=== PATIENT | female | born 1965 | race Caucasian/White ===

== ENCOUNTER 2016-11-27 14:10 | Emergency (ER) | payer OTHER ==
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
[~2016-11-27 14:10] MED LIST: ALBUTEROL17 GM INH; FLEXERIL10 MG PO; IBUPROFEN800 MG PO; NO MEDICATIONS; PHENTERMINE PO; TAMIFLU75 M1 PO; [UNRECOGNIZED DRUG - OTHER]
== END 2016-11-27 14:46 | disposition home or self-care (01) ==
LOC: SED 14:10
DX: S66.912A Strain of unspecified muscle, fascia and tendon at wrist and hand level, left hand, initial encounter (principal); S13.4XXA Sprain of ligaments of cervical spine, initial encounter; S33.5XXA Sprain of ligaments of lumbar spine, initial encounter; S60.811A Abrasion of right wrist, initial encounter; T14.8 Other injury of unspecified body region; V89.2XXA Person injured in unspecified motor-vehicle accident, traffic, initial encounter; Y92.410 Unspecified street and highway as the place of occurrence of the external cause
CPT/HCPCS: 71020; 72100; 72125; 73110; 99284

== ENCOUNTER 2016-11-29 12:48 | Emergency (ER) | payer OTHER ==
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
== END 2016-11-29 14:17 | disposition home or self-care (01) ==
LOC: SED 12:48
DX: S09.90XA Unspecified injury of head, initial encounter (principal); V47.5XXA Car driver injured in collision with fixed or stationary object in traffic accident, initial encounter; Y93.89 Activity, other specified; Y92.410 Unspecified street and highway as the place of occurrence of the external cause
CPT/HCPCS: 70450; 99284

== ENCOUNTER → 2017-01-19 | Outpatient (CLI) | payer BC ==
--- NOTE | ~2017-01-19 | US6 ---
[facility] A Service of [facility] & [facility] RADIOLOGY TEXT RESULTS PATIENT: PIO BEAR LOCATION: SG : [birth year] UNIT #: [id number] AGE: [address]: Hay Go MD SEX: F ORDER DR: [id number] [address] [address] [id number] O MR#: [id number] Acc #: [id number] NAME: POI BEAR : 1965 SEX: F STUDY DATE/TIME: 01/19/2017 10:16 UNIT: [facility] ROOM: STUDY DESCRIPTION: US Abdominal Limited Attending Physician: Hay Go M.D. Referring Physician: Hay Go M.D. Ordering Physician: Hay Go M.D. Primary Care Physician: Hay Go M.D. MEDICAL IMAGING REPORT This report is preliminary unless electronic signature is present. EXAM Right upper quadrant ultrasound 01/19/2017 HISTORY Right upper quadrant abdominal pain and nausea for 3 months. No known injury. FINDINGS Ultrasound examination of the gallbladder is negative. There is no cholelithiasis, gallbladder wall thickening, or bile duct dilatation. The visualized liver is negative. IMPRESSION Negative gallbladder ultrasound examination. Dictated by... Delfino Vallejo M.D. THIS IS AN ELECTRONICALLY VERIFIED REPORT Delfino Vallejo M.D. at 01/20/2017 7:46 AM KRT/to TD: 01/19/2017 13:06 JOB #: [id number] MEDICAL IMAGING REPORT Page 1 of 1
== END | disposition home or self-care (01) ==
LOC: SGUS 09:19
DX: R10.11 Right upper quadrant pain (principal); R11.0 Nausea
CPT/HCPCS: 76705